=== PATIENT | female | born 1955 | race Caucasian/White ===

== ENCOUNTER 2016-07-14 11:15 | Inpatient (IN) | payer BC, OTHER ==
[~2016-07-14] VITALS: Ht 149.9 cm; Wt 37.1 kg
[~2016-07-14 11:15] MED LIST: ADVAIR 250/501 DISK IH; AMBIEN10 M1 PO; CITALOPRAM HBR20 MG PO; DESYREL100 MG PO; EFFEXOR XR150 MG PO; ENDOCET 5-3251 EACH PO; FLEXERIL10 MG; KLONOPIN0.5 M1 PO; LAMOTRIGINE100 MG PO; LEVAQUIN750 MG PO; LITHIUM CARBON150 MG PO; METOCLOPRAMIDE H5 MG PO; OMEPRAZOLE20 M2 PO; PREDNISONE20 MG PO; PRILOSEC20 MG PO; REGLAN5 MG PO; SIMVASTATIN40 MG PO; TIROSINT75 MCG PO; VENTOLIN HFA18 GM IH; ZOCOR40 MG PO
[2016-07-14 13:07] LABS: EOSINOPHIL (%) 0 % (0-5); HEMATOCRIT 42.5 % (36.0-46.0); IMMATURE GRANULOCYTE (%) 0.3 % (0.0-0.7); IMMATURE GRANULOCYTE COUNT 0.3 K/uL; LYMPHOCYTE COUNT 0.7 K/uL (1.0-2.8); MCH 28.2 PG (29.0-34.0); MCHC 33.4 G/DL (30.0-36.0); MCV 84.5 FL (83-99); MEAN PLAT.VOLUME 10.6 uM^3 (9.5-12.4); MONOCYTE (%) 8.5 % (3-12); MONOCYTE COUNT 0.8 K/uL (0-0.8); NEUTROPHIL (%) 83.9 % (45-76); NEUTROPHIL COUNT 7.7 K/uL (1.8-6.4); RBC DIS.WIDTH-CV 13.1 % (11.8-14.6); RED BLOOD COUNT 5.03 M/uL (3.80-5.20)
[2016-07-14 13:08] LABS: PLATELET COUNT 194 K/uL (156-360); WHITE BLOOD COUNT 9.2 K/uL (4.1-10.2)
[2016-07-14 13:15] LABS: CHLORIDE 95 mEq/L (99-109); POTASSIUM 3.5 mEq/L (3.7-5.4); SODIUM 142 mEq/L (136-147)
[2016-07-14 13:16] LABS: GLUCOSE 146 mg/dL (70-99)
[2016-07-14 13:18] LABS: ANION GAP 16 MEQ/L (2-14)
[2016-07-14 13:20] LABS: GFR ESTIMATE (CALCULATED) > 59 mL/min/
[2016-07-14 13:21] LABS: UREA NITROGEN (BUN) 19 mg/dL (9-23)
[2016-07-14] MEDS ORDERED: CITALOPRAM HBR20 MG PO (16:12)
[2016-07-14] MEDS ORDERED: OMEPRAZOLE40 M1 PO (16:12)
[2016-07-14] MEDS ORDERED: VENTOLIN HFA18 GM IH (16:12)
[2016-07-14] MEDS ORDERED: ADVAIR 250/501 DISK IH (16:12)
[2016-07-14] MEDS ORDERED: SYNTHROID88 MCG PO (16:13)
[2016-07-14] MEDS ORDERED: ABILIFY5 MG PO (16:13)
[2016-07-14] MEDS ORDERED: ALBUTEROL2.5 MG/3 M IH (16:14)
[2016-07-14] MEDS ORDERED: SPIRIVA1 INHALATI IH (16:14)
[2016-07-14] MEDS ORDERED: CLONAZEPAM0.5 MG PO (16:15)
[2016-07-14 16:41] LABS: INFLUENZA A VIRAL ANTIGEN NEGATIVE; INFLUENZA B VIRAL ANTIGEN NEGATIVE
[2016-07-14 20:51] VITALS: BP 104/71
[2016-07-14 23:18] VITALS: BP 125/78
[2016-07-15] VITALS (10 sets, daily range): BP systolic 86–112; BP diastolic 54–83
[2016-07-15 06:46] LABS: HEMATOCRIT 39.2 % (36.0-46.0); MCH 29.2 PG (29.0-34.0); MCHC 33.9 G/DL (30.0-36.0); MEAN PLAT.VOLUME 11.3 uM^3 (9.5-12.4); PLATELET COUNT 194 K/uL (156-360); RBC DIS.WIDTH-CV 13.5 % (11.8-14.6); RBC DIS.WIDTH-SD 42.3 % (39-53); RED BLOOD COUNT 4.56 M/uL (3.80-5.20)
[2016-07-15 06:49] LABS: WHITE BLOOD COUNT 6.4 K/uL (4.1-10.2)
[2016-07-15 07:14] LABS: ANION GAP 9 MEQ/L (2-14); CHLORIDE 94 MEQ/L (99-109); GFR ESTIMATE (CALCULATED) > 59 mL/min/; GLUCOSE 148 mg/dL (70-99); POTASSIUM 3.9 MEQ/L (3.7-5.4); SAMPLE HEMOLYSIS CHECK 0; SAMPLE ICTERIC CHECK 0; SAMPLE LIPEMIA CHECK 0; SODIUM 141 MEQ/L (136-147); UREA NITROGEN (BUN) 22 mg/dL (9-23)
[2016-07-15] MEDS ORDERED: TYLENOL WITH C1 EACH PO (13:32)
[2016-07-15 20:56] LABS: INTER. NORMALIZED RATIO 1.1; PROTHROMBIN TIME 10.9 (9.2-11.2); PTT 27.1 (25-32)
[2016-07-15 21:03] LABS: TROP-I INTERPRETATION POSITIVE
[2016-07-16] VITALS (12 sets, daily range): BP systolic 88–103; BP diastolic 49–76
[2016-07-16 00:17] LABS: METH RESISTANT S AUREUS PCR NEGATIVE (NEGATIVE)
[2016-07-16 00:30] LABS: PROBE CHECK PASS; SPECIMEN PROCESSING CONTROL PASS
[2016-07-16 05:48] LABS: MCH 27.9 PG (29.0-34.0); MCV 84.6 FL (83-99); MEAN PLAT.VOLUME 10.6 uM^3 (9.5-12.4); PLATELET COUNT 199 K/uL (156-360); RBC DIS.WIDTH-CV 13.4 % (11.8-14.6); RBC DIS.WIDTH-SD 41.4 % (39-53); RED BLOOD COUNT 4.73 M/uL (3.80-5.20); WHITE BLOOD COUNT 6.9 K/uL (4.1-10.2)
[2016-07-16 06:15] LABS: ANION GAP 7 MEQ/L (2-14); CHLORIDE 95 MEQ/L (99-109); GFR ESTIMATE (CALCULATED) > 59 mL/min/; GLUCOSE 159 mg/dL (70-99); POTASSIUM 3.7 MEQ/L (3.7-5.4); SAMPLE HEMOLYSIS CHECK 0; SAMPLE ICTERIC CHECK 0; SAMPLE LIPEMIA CHECK 0; SODIUM 139 MEQ/L (136-147); UREA NITROGEN (BUN) 20 mg/dL (9-23)
[2016-07-16 07:08] LABS: TROP-I INTERPRETATION POSITIVE
[2016-07-16 07:13] LABS: TROPONIN-I 4.92 ng/mL (0.0-0.30)
[2016-07-16 13:04] LABS: TROP-I INTERPRETATION POSITIVE
[2016-07-16 13:15] LABS: TROPONIN-I 6.35 ng/mL (0.0-0.30)
[2016-07-17 00:02] VITALS: BP 90/53
[2016-07-17 04:05] VITALS: BP 101/55
[2016-07-17 06:47] LABS: EOSINOPHIL (%) 0 % (0-5); HEMATOCRIT 38.7 % (36.0-46.0); IMMATURE GRANULOCYTE (%) 0.5 % (0.0-0.7); IMMATURE GRANULOCYTE COUNT 0.1 K/uL; LYMPHOCYTE COUNT 0.8 K/uL (1.0-2.8); MCH 28.4 PG (29.0-34.0); MCHC 33.3 G/DL (30.0-36.0); MCV 85.2 FL (83-99); MEAN PLAT.VOLUME 11.2 uM^3 (9.5-12.4); MONOCYTE (%) 5.4 % (3-12); MONOCYTE COUNT 0.5 K/uL (0-0.8); NEUTROPHIL COUNT 7.8 K/uL (1.8-6.4); PLATELET COUNT 211 K/uL (156-360); RBC DIS.WIDTH-CV 13.6 % (11.8-14.6); RED BLOOD COUNT 4.54 M/uL (3.80-5.20)
[2016-07-17 06:54] LABS: WHITE BLOOD COUNT 9.2 K/uL (4.1-10.2)
[2016-07-17 07:03] LABS: ANION GAP 8 MEQ/L (2-14); CHLORIDE 94 MEQ/L (99-109); GFR ESTIMATE (CALCULATED) > 59 mL/min/; GLUCOSE 163 mg/dL (70-99); SAMPLE HEMOLYSIS CHECK 0; SAMPLE ICTERIC CHECK 0; SAMPLE LIPEMIA CHECK 0; SODIUM 139 MEQ/L (136-147); UREA NITROGEN (BUN) 29 mg/dL (9-23)
[2016-07-17 08:45] VITALS: BP 82/50
[2016-07-17 11:01] VITALS: BP 81/51
[2016-07-17 17:10] VITALS: BP 86/52
[2016-07-17 20:40] VITALS: BP 82/51
[2016-07-18] VITALS (7 sets, daily range): BP systolic 72–121; BP diastolic 50–64
[2016-07-18 06:36] LABS: HEMATOCRIT 37.4 % (36.0-46.0); MCHC 32.6 G/DL (30.0-36.0); MCV 85.8 FL (83-99); MEAN PLAT.VOLUME 10.7 uM^3 (9.5-12.4); PLATELET COUNT 214 K/uL (156-360); RBC DIS.WIDTH-CV 13.7 % (11.8-14.6); RED BLOOD COUNT 4.36 M/uL (3.80-5.20); WHITE BLOOD COUNT 7.9 K/uL (4.1-10.2)
[2016-07-18 07:07] LABS: ANION GAP 4 MEQ/L (2-14); CHLORIDE 94 MEQ/L (99-109); GFR ESTIMATE (CALCULATED) > 59 mL/min/; POTASSIUM 3.9 MEQ/L (3.7-5.4); SAMPLE HEMOLYSIS CHECK 0; SAMPLE ICTERIC CHECK 0; SAMPLE LIPEMIA CHECK 0; SODIUM 138 MEQ/L (136-147); UREA NITROGEN (BUN) 23 mg/dL (9-23)
[2016-07-18 07:08] LABS: GLUCOSE 98 mg/dL (70-99)
[2016-07-19 04:39] VITALS: BP 84/50
[2016-07-19 09:00] VITALS: BP 86/52
[2016-07-19 11:37] VITALS: BP 88/52
[2016-07-19] MEDS ORDERED: LISINOPRIL2.5 MG PO (15:16)
[2016-07-19] MEDS ORDERED: ASPIRIN EC325 MG PO (15:16)
[2016-07-19] MEDS ORDERED: LOPRESSOR25 MG PO (15:16)
[2016-07-19] MEDS ORDERED: PREDNISONE20 MG PO (15:16)
[2016-07-19] MEDS ORDERED: LEVOTHYROXINE25 MCG PO (15:20)
[2016-07-19 16:42] VITALS: BP 99/60
== END 2016-07-19 19:13 | DRG 189 ==
LOC: EME 11:15 → 2EAST 16:39 → 4EAST 16:39 → EDOF 16:39 → 4WEST 16:39 → 2EAST 20:48 → 4WEST 07-15 22:45 → 4EAST 07-16 20:05
PROVIDERS: Emergency Medicine; Hospitalist; Internal Medicine; Internal Medicine Cardiovascular Disease; Physician Assistant; Physician Assistant Medical; Student in an Organized Health Care Education/Training Program
DX: J96.21 Acute and chronic respiratory failure with hypoxia (principal); J18.9 Pneumonia, unspecified organism; J44.0 Chronic obstructive pulmonary disease with (acute) lower respiratory infection; R64 Cachexia; I24.9 Acute ischemic heart disease, unspecified; I42.9 Cardiomyopathy, unspecified; J44.1 Chronic obstructive pulmonary disease with (acute) exacerbation; E44.1 Mild protein-calorie malnutrition; I51.81 Takotsubo syndrome; Z87.891 Personal history of nicotine dependence; Z99.81 Dependence on supplemental oxygen; J96.10 Chronic respiratory failure, unspecified whether with hypoxia or hypercapnia; K21.9 Gastro-esophageal reflux disease without esophagitis; E78.5 Hyperlipidemia, unspecified; E03.9 Hypothyroidism, unspecified; R54 Age-related physical debility; F31.9 Bipolar disorder, unspecified
CPT/HCPCS: 71020; 71275; 80048; 83605; 83880; 84439; 84443; 84481; 84484; 85025; 85027; 85610; 85730; 87040; 87502; 87641; 93005; 93306; 94640; 94640 76; 94799; 97530 GO; 99202; 99281; 99284; 99285; C1760; C1769; C1887; C1894; J1100; J1644; J1650; J2250; J2930; J3010; J7050; J7512; J7644

== ENCOUNTER 2017-10-01 21:05 | Inpatient (IN) | payer OTHER, BC ==
[~2017-10-01] VITALS: Ht 147.3 cm; Wt 36.4 kg
[~2017-10-01 21:05] MED LIST changes: +ABILIFY10 MG PO; +ALBUTEROL2.5 MG/3 M IH; +ASPIRIN EC325 MG PO; +CLONAZEPAM0.5 MG PO; +LEVOTHYROXINE25 MCG PO; +LISINOPRIL2.5 MG PO; +LOPRESSOR25 MG PO; +OMEPRAZOLE40 M1 PO; +SPIRIVA1 INHALATI IH; +SYNTHROID88 MCG PO; +TYLENOL WITH C1 EACH PO
[2017-10-01 22:17] LABS: APPEARANCE CLOUDY ((CLEAR)); BILIRUBIN NEGATIVE; BLOOD SMALL; COLOR YELLOW ((YELLOW)); GLUCOSE (STRIP) NEGATIVE; KETONES NEGATIVE; LEUKOCYTES LARGE; NITRITE NEGATIVE; PROTEIN (STRIP) NEGATIVE; SPECIFIC GRAVITY 1.004 (1.000-1.030); UROBILINOGEN 0.2 MG/DL (0.2-1.0)
[2017-10-01 22:32] LABS: AMPHETAMINE NEGATIVE (500 ng/mL); BARBITURATES NEGATIVE (200 ng/mL); BENZODIAZEPINES NEGATIVE (150 ng/mL); BUPRENORPHINE NEGATIVE (10 ng/mL); COCAINE NEGATIVE (150 ng/mL); METHADONE NEGATIVE (200 ng/mL); METHAMPHETAMINE NEGATIVE (500 ng/mL); OPIATES (MORPHINE) NEGATIVE (100 ng/mL); OXYCODONE NEGATIVE (100 ng/mL); PHENCYCLIDINE NEGATIVE (25 ng/mL); PROPOXYPHENE NEGATIVE (300 ng/mL); THC CANNABINOIDS NEGATIVE (50 ng/mL); TRICYCLIC ANTIDEPRESSANTS NEGATIVE (300 ng/mL)
[2017-10-01 22:48] LABS: BASOPHIL (%) 0.2 % (0-1); EOSINOPHIL (%) 0.4 % (0-5); HEMATOCRIT 32.2 % (36.0-46.0); HEMOGLOBIN 9.6 G/DL (11.9-15.5); IMMATURE GRANULOCYTE (%) 0.2 % (0.0-0.7); LYMPHOCYTE (%) 6.4 % (15-42); LYMPHOCYTE COUNT 0.6 K/uL (1.0-2.8); MCH 27.7 PG (29.0-34.0); MCHC 29.8 G/DL (30.0-36.0); MCV 92.8 FL (83-99); MONOCYTE (%) 7.5 % (3-12); MONOCYTE COUNT 0.7 K/uL (0-0.8); NEUTROPHIL (%) 85.3 % (45-76); NEUTROPHIL COUNT 7.7 K/uL (1.8-6.4); RBC DIS.WIDTH-SD 40.9 % (39-53); RED BLOOD COUNT 3.47 M/uL (3.80-5.20)
[2017-10-01 22:51] LABS: PLATELET COUNT 112 K/uL (156-360)
[2017-10-01 22:53] LABS: EPITHELIAL CELLS RARE /HPF; RED BLOOD CELLS 0-5 /HPF (0-5); WHITE BLOOD CELLS 0-5 /HPF (0-5)
[2017-10-01 22:54] LABS: BACTERIA 2+ /HPF; MUCUS NONE SEEN /LPF; UCUL ADDED? YES
[2017-10-01 23:06] LABS: CHLORIDE 92 mEq/L (99-109); MAGNESIUM 1.7 mg/dL (1.3-2.7); POTASSIUM 4.3 mEq/L (3.7-5.4); SODIUM 146 mEq/L (136-147)
[2017-10-01 23:08] LABS: GLUCOSE 97 mg/dL (70-99); TOTAL PROTEIN 6.1 g/dL (6.4-8.3)
[2017-10-01 23:10] LABS: TOTAL BILIRUBIN 0.5 mg/dL (0.0-1.0); TROP-I INTERPRETATION NEGATIVE; TROPONIN-I < 0.01 ng/mL (0.0-0.30)
[2017-10-01 23:11] LABS: ALKALINE PHOSPHATASE 86 IU/L (3-129)
[2017-10-01 23:12] LABS: CREATININE 0.7 mg/dL (0.6-1.3); GFR ESTIMATE (CALCULATED) > 59 mL/min/
[2017-10-01 23:13] LABS: AST (GOT) 14 IU/L (2-34); UREA NITROGEN (BUN) 9 mg/dL (9-23)
[2017-10-01 23:15] LABS: ALT (GPT) 6 IU/L (3-49); CARBON DIOXIDE (BICARBONATE) > 40.0 mEq/L (20-31)
[2017-10-02] VITALS (19 sets, daily range): BP systolic 70–118; BP diastolic 44–84
[2017-10-02 00:15] LABS: BASE EXCESS 21.9 mEq/L (-3 to +3); BICARBONATE 51.9 mEq/L (22-26); CARBOXY HGB 1.6 % (0-5); COMMENTS - BLOOD GASES C+A+; DEVICE NC; METHEMOGLOBIN 1.2 % (0-1.5); O2 FLOW 4 L/MIN; PCO2 108 mm Hg (35-45); PO2 137 mm Hg (80-100); SITE RR; pH 7.29 (7.35-7.45)
[2017-10-02] MEDS ORDERED: SYNTHROID50 MCG PO (00:38)
[2017-10-02] MEDS ORDERED: SPIRIVA1 INHALATI IH (00:39)
[2017-10-02] MEDS ORDERED: CLOBETASOL PROP60 GM TP (00:39)
[2017-10-02 02:00] LABS: BASE EXCESS 21.7 mEq/L (-3 to +3); BICARBONATE 50.3 mEq/L (22-26); CARBOXY HGB 1.8 % (0-5); COMMENTS - BLOOD GASES C+A+; DEVICE NIV; FI02 30 %; METHEMOGLOBIN 0.6 % (0-1.5); MODE SPONT; PCO2 87 mm Hg (35-45); PO2 56 mm Hg (80-100); SITE RR; pH 7.37 (7.35-7.45)
[2017-10-02 02:01] LABS: PEEP 5 CM/H20; PRES. SUPPORT 15 CM/H2O; TOTAL RESP RATE 23 resp/min
[2017-10-02 05:58] LABS: BASE EXCESS 21.8 mEq/L (-3 to +3); BICARBONATE 51.5 mEq/L (22-26); CARBOXY HGB 1.8 % (0-5); METHEMOGLOBIN 1.6 % (0-1.5); PCO2 100 mm Hg (35-45); PO2 93 mm Hg (80-100); SITE RR; pH 7.32 (7.35-7.45)
[2017-10-02 05:59] LABS: COMMENTS - BLOOD GASES C+; DEVICE NC; O2 FLOW 3 L/MIN; TOTAL RESP RATE 16 resp/min
[2017-10-02 08:26] LABS: THYROTROPIN (TSH) 1.2 MIU/L (0.4-5.5)
[2017-10-02 09:24] LABS: BASOPHIL (%) 0.3 % (0-1); EOSINOPHIL (%) 0.4 % (0-5); HEMOGLOBIN 9.4 G/DL (11.9-15.5); IMMATURE GRANULOCYTE (%) 0.4 % (0.0-0.7); LYMPHOCYTE (%) 10.4 % (15-42); LYMPHOCYTE COUNT 0.7 K/uL (1.0-2.8); MCH 27.5 PG (29.0-34.0); MCHC 29.4 G/DL (30.0-36.0); MCV 93.6 FL (83-99); MONOCYTE COUNT 0.3 K/uL (0-0.8); NEUTROPHIL (%) 84.5 % (45-76); PLATELET COUNT 103 K/uL (156-360); RBC DIS.WIDTH-CV 12.3 % (11.8-14.6); RBC DIS.WIDTH-SD 42.4 % (39-53); RED BLOOD COUNT 3.42 M/uL (3.80-5.20); WHITE BLOOD COUNT 7.1 K/uL (4.1-10.2)
[2017-10-02 09:53] LABS: CHLORIDE 98 MEQ/L (99-109); CREATININE 0.5 MG/DL (0.6-1.3); GFR ESTIMATE (CALCULATED) > 59 mL/min/; GLUCOSE 107 mg/dL (70-99); MAGNESIUM 1.5 mg/dl (1.3-2.7); PHOSPHORUS 2.5 mg/dL (2.5-4.9); POTASSIUM 4.4 MEQ/L (3.7-5.4); SODIUM 145 MEQ/L (136-147); UREA NITROGEN (BUN) 7 mg/dL (9-23)
[2017-10-03] VITALS (14 sets, daily range): BP systolic 82–113; BP diastolic 47–79
[2017-10-03 04:50] LABS: BASOPHIL (%) 0 % (0-1); EOSINOPHIL (%) 0 % (0-5); HEMATOCRIT 25.4 % (36.0-46.0); HEMOGLOBIN 7.9 G/DL (11.9-15.5); IMMATURE GRANULOCYTE (%) 0.4 % (0.0-0.7); LYMPHOCYTE (%) 12.2 % (15-42); LYMPHOCYTE COUNT 0.6 K/uL (1.0-2.8); MCH 27.8 PG (29.0-34.0); MCHC 31.1 G/DL (30.0-36.0); MONOCYTE (%) 2.9 % (3-12); MONOCYTE COUNT 0.1 K/uL (0-0.8); NEUTROPHIL (%) 84.5 % (45-76); NEUTROPHIL COUNT 3.8 K/uL (1.8-6.4); PLATELET COUNT 115 K/uL (156-360); RBC DIS.WIDTH-CV 12.2 % (11.8-14.6); RBC DIS.WIDTH-SD 39.8 % (39-53); RED BLOOD COUNT 2.84 M/uL (3.80-5.20); WHITE BLOOD COUNT 4.5 K/uL (4.1-10.2)
[2017-10-03 04:52] LABS: MCV 89.4 FL (83-99)
[2017-10-03 05:01] LABS: CHLORIDE 98 mEq/L (99-109); POTASSIUM 3.9 mEq/L (3.7-5.4); SODIUM 142 mEq/L (136-147)
[2017-10-03 05:03] LABS: GLUCOSE 142 mg/dL (70-99)
[2017-10-03 05:04] LABS: MAGNESIUM 2.1 mg/dL (1.3-2.7)
[2017-10-03 05:07] LABS: CREATININE 0.6 mg/dL (0.6-1.3); GFR ESTIMATE (CALCULATED) > 59 mL/min/; PHOSPHORUS 1.6 mg/dL (2.5-4.9)
[2017-10-03 05:08] LABS: UREA NITROGEN (BUN) 11 mg/dL (9-23)
[2017-10-04 00:20] VITALS: BP 136/62
[2017-10-04 03:42] VITALS: BP 110/58
[2017-10-04 06:29] LABS: BASOPHIL (%) 0.1 % (0-1); EOSINOPHIL (%) 0 % (0-5); HEMATOCRIT 26.2 % (36.0-46.0); IMMATURE GRANULOCYTE (%) 0.4 % (0.0-0.7); LYMPHOCYTE (%) 7.6 % (15-42); LYMPHOCYTE COUNT 0.6 K/uL (1.0-2.8); MCH 27.3 PG (29.0-34.0); MCHC 30.5 G/DL (30.0-36.0); MCV 89.4 FL (83-99); MONOCYTE (%) 4.5 % (3-12); MONOCYTE COUNT 0.3 K/uL (0-0.8); NEUTROPHIL (%) 87.4 % (45-76); NEUTROPHIL COUNT 6.7 K/uL (1.8-6.4); RBC DIS.WIDTH-CV 12.8 % (11.8-14.6); RBC DIS.WIDTH-SD 41.9 % (39-53); RED BLOOD COUNT 2.93 M/uL (3.80-5.20); WHITE BLOOD COUNT 7.6 K/uL (4.1-10.2)
[2017-10-04 06:44] LABS: PLATELET COUNT 153 K/uL (156-360)
[2017-10-04 06:53] LABS: ALBUMIN 3.2 G/DL (3.2-4.8); ALKALINE PHOSPHATASE 52 IU/L (3-129); ALT (GPT) 8 IU/L (3-49); AST (GOT) 10 IU/L (2-34); CHLORIDE 100 MEQ/L (99-109); CREATININE 0.5 MG/DL (0.6-1.3); GFR ESTIMATE (CALCULATED) > 59 mL/min/; GLUCOSE 152 mg/dL (70-99); PHOSPHORUS 2.4 mg/dL (2.5-4.9); POTASSIUM 3.3 MEQ/L (3.7-5.4); SODIUM 145 MEQ/L (136-147); TOTAL BILIRUBIN 0.2 MG/DL (0.0-1.0); TOTAL PROTEIN 5.3 G/DL (6.4-8.3); UREA NITROGEN (BUN) 9 mg/dL (9-23)
[2017-10-04 06:59] LABS: MAGNESIUM 1.8 mg/dl (1.3-2.7)
[2017-10-04 15:41] VITALS: BP 114/56
[2017-10-04 18:56] VITALS: BP 108/59
[2017-10-04 21:10] VITALS: BP 116/56
[2017-10-04 23:42] VITALS: BP 112/57
[2017-10-05 03:02] VITALS: BP 104/53
[2017-10-05 06:33] LABS: BASOPHIL (%) 0 % (0-1); EOSINOPHIL (%) 0 % (0-5); HEMATOCRIT 26.6 % (36.0-46.0); HEMOGLOBIN 8.1 G/DL (11.9-15.5); IMMATURE GRANULOCYTE (%) 0.3 % (0.0-0.7); LYMPHOCYTE (%) 11.2 % (15-42); LYMPHOCYTE COUNT 0.7 K/uL (1.0-2.8); MCH 27.8 PG (29.0-34.0); MCHC 30.5 G/DL (30.0-36.0); MCV 91.4 FL (83-99); MONOCYTE (%) 4.8 % (3-12); MONOCYTE COUNT 0.3 K/uL (0-0.8); NEUTROPHIL (%) 83.7 % (45-76); NEUTROPHIL COUNT 5.5 K/uL (1.8-6.4); PLATELET COUNT 170 K/uL (156-360); RBC DIS.WIDTH-CV 13.1 % (11.8-14.6); RBC DIS.WIDTH-SD 43.2 % (39-53); RED BLOOD COUNT 2.91 M/uL (3.80-5.20); WHITE BLOOD COUNT 6.5 K/uL (4.1-10.2)
[2017-10-05 07:14] LABS: MAGNESIUM 1.8 mg/dl (1.3-2.7); PHOSPHORUS 2.3 mg/dL (2.5-4.9)
[2017-10-05 07:15] LABS: ALBUMIN 3.1 G/DL (3.2-4.8); ALKALINE PHOSPHATASE 49 IU/L (3-129); ALT (GPT) 10 IU/L (3-49); AST (GOT) 11 IU/L (2-34); CHLORIDE 101 MEQ/L (99-109); CREATININE 0.6 MG/DL (0.6-1.3); GFR ESTIMATE (CALCULATED) > 59 mL/min/; GLUCOSE 124 mg/dL (70-99); SODIUM 146 MEQ/L (136-147); TOTAL BILIRUBIN 0.2 MG/DL (0.0-1.0); TOTAL PROTEIN 4.9 G/DL (6.4-8.3); UREA NITROGEN (BUN) 13 mg/dL (9-23)
[2017-10-05 07:18] LABS: POTASSIUM 4.2 MEQ/L (3.7-5.4)
[2017-10-05 07:45] VITALS: BP 95/53
[2017-10-05 08:41] LABS: IRON 83 MCG/DL (35-150); TRANSFERRIN (TIBC) 192.9 mg/dL (215-380); TRANSFERRIN SATUR. 43 % (20-55)
[2017-10-05 09:09] LABS: RETIC HGB EQUIVALENT 28.1 (28-36); RETICULOCYTE COUNT 1.8 % (0.5-1.8)
[2017-10-05 09:17] LABS: FERRITIN 125 NG/ML (10-291)
[2017-10-05 10:06] LABS: FOLIC ACID (FOLATE) 7.9 NG/ML (5.0-22.0)
[2017-10-05 11:28] VITALS: BP 137/63
[2017-10-05] MEDS ORDERED: PREDNISONE10 MG PO (12:58)
[2017-10-05] MEDS ORDERED: AUGMENTIN875 MG PO (12:58)
[2017-10-05] MEDS ORDERED: NICOTINE PATCH1 EAC2 TD (12:58)
== END 2017-10-05 14:21 | disposition home or self-care (01) | DRG 190 ==
LOC: EME → EDBD 21:05 → EME 21:05 → EDOF 10-02 02:12 → 4WEST 10-02 02:12 → ENRESERV 10-02 02:19 → 4WEST 10-02 04:14 → ENRESERV 10-03 06:07 → 5EAST 10-03 15:22
PROVIDERS: Emergency Medicine; Hospitalist; Specialist
PROC: 5A09357 Assistance with Respiratory Ventilation, Less than 24 Consecutive Hours, Continuous Positive Airway Pressure (ICD-10-PCS; principal; 2017-10-02)
DX: J44.1 Chronic obstructive pulmonary disease with (acute) exacerbation (principal); J96.02 Acute respiratory failure with hypercapnia; I27.20 Pulmonary hypertension, unspecified; N39.0 Urinary tract infection, site not specified; B96.20 Unspecified Escherichia coli [E. coli] as the cause of diseases classified elsewhere; R41.82 Altered mental status, unspecified; I42.9 Cardiomyopathy, unspecified; E78.5 Hyperlipidemia, unspecified; D64.9 Anemia, unspecified; E03.9 Hypothyroidism, unspecified; F31.9 Bipolar disorder, unspecified; K21.9 Gastro-esophageal reflux disease without esophagitis; M79.7 Fibromyalgia; F41.9 Anxiety disorder, unspecified; Z99.81 Dependence on supplemental oxygen; Z87.891 Personal history of nicotine dependence
CPT/HCPCS: 36600; 70450; 71046; 80048; 80053; 81003; 82607; 82728; 82746; 82803; 83540; 83735; 84100; 84439; 84443; 84466; 84484; 85025; 85046; 87077; 87086; 87186; 87493; 87641; 93005; 93306; 94002; 94010; 94640; 94640 76; 94667; 94668; 94760; 94799; 99202; 99281; 99285; J0295; J1644; J1956; J2920; J2930; J3475; J7030; J7040; J7050

== ENCOUNTER 2017-10-20 11:58 | Emergency (ER) | payer OTHER, BC ==
[~2017-10-20] VITALS: Ht 147.3 cm; Wt 39.0 kg
[~2017-10-20 11:58] MED LIST changes: +AUGMENTIN875 MG PO; +CLOBETASOL PROP60 GM TP; +NICOTINE PATCH1 EAC2 TD; +PREDNISONE10 MG PO; +SYNTHROID50 MCG PO
[2017-10-20 14:04] LABS: APPEARANCE SL.HAZY ((CLEAR)); BILIRUBIN NEGATIVE; BLOOD NEGATIVE; COLOR YELLOW ((YELLOW)); GLUCOSE (STRIP) NEGATIVE; KETONES NEGATIVE; LEUKOCYTES TRACE; NITRITE NEGATIVE; PROTEIN (STRIP) NEGATIVE; SPECIFIC GRAVITY 1.015 (1.000-1.030); UROBILINOGEN 0.2 MG/DL (0.2-1.0)
[2017-10-20 14:12] LABS: HEMATOCRIT 28.8 % (36.0-46.0); MCH 28.4 PG (29.0-34.0); MCHC 31.3 G/DL (30.0-36.0); MCV 90.9 FL (83-99); PLATELET COUNT 179 K/uL (156-360); RBC DIS.WIDTH-CV 13.5 % (11.8-14.6); RBC DIS.WIDTH-SD 45.5 % (39-53); RED BLOOD COUNT 3.17 M/uL (3.80-5.20); WHITE BLOOD COUNT 5.1 K/uL (4.1-10.2)
[2017-10-20 14:21] LABS: BACTERIA 2+ /HPF; CALCIUM OXALATE CRYSTALS 2+ /HPF; EPITHELIAL CELLS RARE /HPF; HYALINE CASTS 0-5 /LPF; MUCUS TRACE /LPF; WHITE BLOOD CELLS 0-5 /HPF (0-5)
[2017-10-20 14:22] LABS: CHLORIDE 99 mEq/L (99-109); POTASSIUM 4.2 mEq/L (3.7-5.4); SODIUM 143 mEq/L (136-147)
[2017-10-20 14:24] LABS: GLUCOSE 103 mg/dL (70-99)
[2017-10-20 14:28] LABS: CREATININE 0.7 mg/dL (0.6-1.3); GFR ESTIMATE (CALCULATED) > 59 mL/min/
[2017-10-20 14:29] LABS: UREA NITROGEN (BUN) 24 mg/dL (9-23)
[2017-10-20 16:23] VITALS: BP 100/72
== END 2017-10-20 16:24 | disposition home or self-care (01) ==
LOC: EME 11:58
PROVIDERS: Emergency Medicine
DX: N82.3 Fistula of vagina to large intestine (principal); J44.9 Chronic obstructive pulmonary disease, unspecified; M79.7 Fibromyalgia; K21.9 Gastro-esophageal reflux disease without esophagitis; G43.909 Migraine, unspecified, not intractable, without status migrainosus; I34.1 Nonrheumatic mitral (valve) prolapse; F41.9 Anxiety disorder, unspecified; F32.9 Major depressive disorder, single episode, unspecified; F31.9 Bipolar disorder, unspecified; E73.9 Lactose intolerance, unspecified; Z79.51 Long term (current) use of inhaled steroids; Z87.891 Personal history of nicotine dependence
CPT/HCPCS: 74177; 80048; 81003; 85027; 94640; 99281; 99285; J7030